=== PATIENT | male | born 1970 | race Caucasian/White ===

== ENCOUNTER 2017-02-14 20:20 | Emergency (ER) | payer OTHER ==
[2017-02-14 20:26] VITALS: BP 155/107; BMI 31.3
--- NOTE | 2017-02-14 21:15 | RAD ---
HISTORY: Right anterior rib pain. Study: Frontal view of the chest and right rib series. Comparison: None. Findings: The trachea is midline. The cardiac silhouette is within normal limits. The lungs are clear withou t focal infiltrate or effusion. No acute cortical disruption or angulation of the bony right hemit horax can be identified. No underlying pneumothorax is seen. IMPRESSION: 1. No acute cardiopulmonary disease. 2. No evidence for acute rib fracture. Reported By:
--- NOTE | 2017-02-14 21:40 | DR.GENAD ---
HPI - PCP Primary Care Physician: MARLENE - Complaint/Symptoms Chief Complaint Doctors Comments: Patient states that he was trying to lift a washing machine and heard a pop on his right lower rib cage. Chief Complaint:: RIGHT RIB PAIN - Source History Provided: Patient - Mode of Arrival Mode of Arrival: Ambulatory - Timing Onset of Chief Complaint: 02/14/17 PMH - PMH Past Medical History: Yes Past Medical History: Hypertension Past Surgical History: Yes Surgical History: Abdominal Surgery, Ortho Surgery Past Surgical History Comment: HERNIA REPAIR, TENDON REPAIR IN LEFT THUMB, HEART CATH THIS YEAR - Family History History of Family Medical Conditions: Yes Family Medical History: Cancer, Hypertension - Social History Does patient currently use any type of tobacco product: No Have you used tobacco products in the last 12 months: No Type of Tobacco Use: None Does any household member use tobacco: No Alcohol Use: Rarely Do you use any recreational Drugs:: No Lives With: Spouse Lives Where: Home - infectious screening In the last 2 months have you had wt loss of >10#?: NO Have you had fever, night sweats or hemotysis?: No Have you traveled outside the country in the last 6 months?: No Isolation: Standard ROS - Review of Systems Constitutional: No Symptoms Reported Eyes: No Symptoms Reported ENTM: No Symptoms Reported Respiratoy: No Symptoms Reported Cardiovascular: No Symptoms Reported Gastrointestinal/Abdominal: No Symptoms Reported Genitourinary: No Symptoms Reported Neurological: No Symptoms Reported Musculoskeletal: Rib(s) (right lower) Integumentary: No Symptoms Reported Hematologic/Lymphatic: No Symptoms Reported Endocrine: No Symptoms Reported Psychiatric: No Symptoms Reported All Other Systems: Reviewed and Negative PE - Vital Signs Vitals: Temperature 97.6 F Pulse Rate 94 Respiratory Rate 12 Blood Pressure 155/107 O2 Sat by Pulse Oximetry 98 - General Limitations: No Limitations General Appearance: Alert, In No Apparent Distress - Head Head Exam: Normal Inspection, Atraumatic - Eyes Eye exam: Normal Appearance, PERRL, EOMI - ENT ENT Exam: Normal Exam External Ear Exam: Normal External Inspection TM/Canal Exam: Bilateral Normal Nose Exam: Normal Nose Exam Mouth Exam: Normal Inspection Throat Exam: Normal Inspection - Neck Neck Exam: Normal Inspection - Chest Chest Inspection: Normal Inspection, Tenderness (right lower rib cage) - Respiratory Respiratory Exam: Normal Lung Sounds Bilat Respiratory Exam: Bilateral Clear to Auscultation - Cardiovascular Cardiovascular Exam: Regular Rate - Abdominal Exam Abdominal Exam: Normal Inspection Abdominal Tenderness: negative: RUQ, RLQ, LUQ, LLQ, Epigastrium, Suprapubic, Diffuse, Mild, Moderate, Severe, Other - Extremities Extremities Exam: Normal Inspection - Back Back Exam: Normal Inspection - Neurologic Neurological Exam: Alert, Oriented X3, CN II-XII Intact ROR - XRAY XRAY Interpreted by: Radiologist (No acute cardiopulmonary disease. No evidence for acute rib fracture) - Diagnosis Discharge Problem: Rib pain on right side - Discharge Plan Condition: Stable - Follow ups/Referrals Follow ups/Referrals: Victor Manuel Holguin [Primary Care Provider] - 3 days - Instructions
[2017-02-14] MEDS ORDERED: NORCO 7.5/325 MG TAB PO ONE (21:49)
[2017-02-14] MEDS ORDERED: NORCO 7.5/325 MG TAB ONE (21:50)
== END 2017-02-14 22:00 | disposition home or self-care (01) ==
LOC: ER 20:29
DX: R07.89 Other chest pain (principal); X50.0XXA Overexertion from strenuous movement or load, initial encounter; Y92.9 Unspecified place or not applicable
CPT/HCPCS: 71111; 99282; 99283